=== PATIENT | female | born 1930 | race Caucasian/White ===

== ENCOUNTER 2018-07-28 22:13 | Inpatient (IN) ==
--- NOTE | 2018-07-29 00:18 | Internal Med History&Physical ---
<Jeovany Betancourt S - Last Filed: 07/29/18 01:11> Date of Encounter: 07/29/18 Time of Encounter: 01:11 Internal Medicine - H&P: HPI Chief complaint: i fell Admitted From: Hospital to Hospital Transfer Plans for Post Hospital Care: Home History of present illness: Ms. Bazzi is a 87 year old female with PMH of polio, CAD s/p LHC and stent, HTN, rheumatoid arthritis, and HLD presents to [facility] as a [facility] transfer. She states she was trying to feed her cats and felt very lightheaded and then passed out and hit her head after falling forward. She does have a hx of falls and states she has had many falls over the last few years. She denies any active chest pain but does state that occasionally she will feel a "twinge of chest pain." She has never been diagnosed with a fib before. She was able to drag h erself to a phone and call for help. She states she is not on anticoagulation, she did not have any LOC, she was down very minimal amount of time. In the past she has had a holter monitor, which showed 16 beats of SVT. Previous ECHO in 2017 had a LVEF of 50%. She reported a history of LHC and 1 stent. The pt was stabilized at [facility] and started on cardizem. She was noted to have a large hematoma of the forehead. CT scan ruled out intracranial bleed. C- spine CT was negative for fracture. EKG showed old Q waves and unchanged ST elevation. She is currently resting comfortably without any complaint. She denies active chest pain, SOB, palpiltations or N/V/D. Past Med Surg Social Fam HX - Past Medical History Medical history: hypertension Psychiatric history: no psych history - Past Surgical History Additional surgical history: Bowel Rescetion, - Social History Smoking Status: Never smoker Alcohol use: none Drug use: none Internal Medicine - H&P: Meds Aspirin [Adult Aspirin] 81 mg PO DAILY 07/28/18 [History] Atorvastatin Calcium [Lipitor] 10 mg PO 07/28/18 [History] Calcium Carbonate [Calcium] 1,500 mg PO 07/28/18 [History] Cholecalciferol (Vitamin D3) [Vitamin D] 1,000 unit PO DAILY 07/28/18 [History] Labetalol HCl 100 mg PO DAILY 07/28/18 [History] Potassium 07/28/18 [History] Allergy/AdvReac Type Severity Reaction Status Date / Time Antihistamines - Alkylamine Allergy Swelling Verified 07/28/18 19:17 of Lip/Tongue/Throat Iodinated Contrast- Oral and Allergy Swelling Verified 07/28/18 19:15 IV Dye of Lip/Tongue/Throat Latex, Natural Rubber Allergy Swelling Verified 07/28/18 19:15 of Lip/Tongue/Throat All Systems PM: A 10-system review of systems was performed and is negative for pertinent findings except as documented above in the HPI. - Constitutional Constitutional: fatigue, falls, weakness, no fever(s) - EENT Eyes: no blurry vision, no change in vision Ears: no tinnitus Nose, mouth and throat: no epistaxis - Cardiovascular Cardiovascular ROS IM: lightheadedness, palpitations, no chest pain, no dyspnea, no dyspnea on exertion - Respiratory Respiratory: no cough, no dyspnea, no dyspnea on exertion - Gastrointestinal Gastrointestinal: no abdominal pain, no diarrhea, no nausea, no vomiting - Musculoskeletal Musculoskeletal ROS IM: arthralgias, neck pain, no stiffness, no tingling - Integumentary Integumentary IM: no rash, no jaundice - Psychiatric Psychiatric: no anxiety, no depression - Endocrine Endocrine IM: fatigue - Hematologic/Lymphatic Hematologic/Lymphatic: easy bruising, no easy bleeding - Constitutional General appearance: Present: cooperative, A&O X 3, underweight, answers questions appropriately Exam: General - AOx3, cooperative, pleasant HEENT - normocephalic, contusion of the forehead, MMM Eyes - no scleral icterus, no proptosis Cardio - tacycardic, irregular rhythm, CTA lungs - CTAB, no wheeze/rhonchi/rales, no respiratory distress abd - NTND, no peritoneal signs, no rebound or guarding extremities - moves all extremties equally, strength diminished neuro - no FND, CN2-12 intact, sensation intact skin - warm,dry, minor scratches to the hands, some bruising noted on the UE and forehead psych - appropriate mood/affect - Assessment and Plan (1) Atrial fibrillation with RVR Current Visit: Yes Status: Resolved Assessment and plan: Pt went into a fib with RVR, was stabilized at [facility] and transferred to [facility] - new onset, never has had hx of a fib - denies previous use of labetolol/cardizem CHADVASc of 4 - pt is not good candidate for AC, will hold off at this time - high risk for bleeds with hx of falls Previous ECHO from 2017 LVEF 50%. Normal LV chamber size, wall thickness and overall function. Atypical septal motion consistent with bundle branch block. Normal right ventricular structure and function. Mild mitral regurgitation, no evidence of pulmonary hypertension Holter monitor from 2017 Rare PVCs. Occasional PACs. Occasional SVT, longest 16 beats. Troponin negative x 1 EKG #1 showed Q waves, unchanged ST elevation, and irregular rhythm EKG #2 showed irregular rhythm with normal rate and continued presence of Q waves/ST changes, however, unchanged compared to old EKG\\ Plan: - trend troponin - monitor cbc/bmp Magnesium with morning labs, keep>2 Phosphorus with AM labs - TSH pending - ECHO pending - continue cardizem drip - no anticoagulation at this time due to high risk for bleeding/hematoma - MRI pending for AM - FEN: cardiac diet, nutrition consulted - dispo: will require inpatient treatment, on IV cardizem will need to be transitioned to PO medication, will be home-going and is refusing PTOT evaluation or SNF placement (2) Wrist pain Current Visit: Yes Status: Acute Assessment and plan: Pt tried to brace and hurt wrist with fall. Will check an XR. Qualifiers: Laterality: left Qualified Code(s): M25.532 - Pain in left wrist (3) History of MT (myocardial infarction) Current Visit: No Status: Chronic Assessment and plan: Pt has hx of MT, s/p LHC 1 stent (4) History of poliomyelitis Current Visit: No Status: Chronic Assessment and plan: Pt had polio as child, has diminished strength at baseline in bilateral LE. (5) Hypertension Current Visit: No Status: Chronic Assessment and plan: Has hx of HTN, continue home rx. Qualifiers: Hypertension type: essential hypertension Qualified Code(s): I10 - Essential (primary) hypertension (6) Fall Current Visit: No Status: Acute Assessment and plan: Pt fell at home and hit face/wrist - large hematoma is present on right forehead - no LOC, not on AC, minimal downtime Head CT: no acute intracranial abnormality, rather prominent left forehead scalp contusion and hematoma. Maxillofacial CT: no acute traumatic injury of the facial bones, left supraorbital contusion Cervical spine CT: No acute abnormality of the cervical spine Plan: - fall precautions - pt is declining PTOT evaluation Qualifiers: Encounter type: initial encounter Qualified Code(s): W19.XXXA - Unspecified fall, initial encounter (7) Contusion of forehead Current Visit: Yes Status: Acute Assessment and plan: Secondary to fall. Pt denies LOC, blurry vision/visual changes, numbness/tingling over the affected area. Qualifiers: Encounter type: initial encounter Qualified Code(s): S00.83XA - Contusion of other part of head, initial encounter (8) DVT prophylaxis Current Visit: Yes Status: Acute Assessment and plan: scd (9) Protein calorie malnutrition Current Visit: Yes Status: Acute Assessment and plan: BMI 18.3, will consult nutrition Qualifiers: Protein-calorie malnutrition severity: mild Qualified Code(s): E44.1 - Mild protein-calorie malnutrition - Time Spent With Patient Total time spent is greater than 50% in coordination of care (as documented) at patient's floor/unit and/or counseling patient: 25 - 35 minutes <Cruz Saunders - Last Filed: 07/29/18 02:09> Date of Encounter: 07/29/18 Internal Medicine - H&P: HPI History of present illness: Ms. Bazzi is a 87 year old female All Systems PM: A 10-system review of systems was performed and is negative for pertinent findings except as documented above in the HPI. - Constitutional Vitals: Temp Pulse Resp BP Pulse Ox 97.8 F 100 16 120/89 97 07/29/18 00:01 07/29/18 00:01 07/29/18 00:01 07/29/18 00:01 07/29/18 00:01 Internal Med - H&P Results - Labs Labs: Cardiac Enzymes 07/29/18 Range/Units 01:02 Troponin I 0.04 H* (< 0.04) ng/mL - Assessment and Plan (1) Contusion of forehead Current Visit: Yes Status: Acute Qualifiers: Encounter type: initial encounter Qualified Code(s): S00.83XA - Contusion of other part of head, initial encounter (2) Atrial fibrillation with RVR Current Visit: Yes Status: Resolved (3) Fall Current Visit: No Status: Acute Qualifiers: Encounter type: initial encounter Qualified Code(s): W19.XXXA - Unspecified fall, initial encounter (4) DVT prophylaxis Current Visit: Yes Status: Acute (5) Wrist pain Current Visit: Yes Status: Acute Qualifiers: Laterality: left Qualified Code(s): M25.532 - Pain in left wrist (6) History of MT (myocardial infarction) Current Visit: No Status: Chronic (7) History of poliomyelitis Current Visit: No Status: Chronic (8) Hypertension Current Visit: No Status: Chronic Qualifiers: Hypertension type: essential hypertension Qualified Code(s): I10 - Essential (primary) hypertension (9) Protein calorie malnutrition Current Visit: Yes Status: Acute Qualifiers: Protein-calorie malnutrition severity: mild Qualified Code(s): E44.1 - Mild protein-calorie malnutrition - Time Spent With Patient Total time spent is greater than 50% in coordination of care (as documented) at patient's floor/unit and/or counseling patient: - Attending Attestation I have seen and examined the patient with Dr. Betancourt and agree with his/her assessment and plan. 87-year-old female with history of hypertension, CAD status post remote PCI, presented to the outside hospital ED with intermittent episodes of dizziness/vertigo resulting in fall today. Suffered left periorbital hematoma. She was also noted to have new onset of A. fib with RVR and was transferred to [facility] for further management. Vitals reviewed. On exam, ecchymosis over left forehead noted. Her heart rate is now controlled on diltiazem drip, no murmur auscultated. No JVD or leg edema. Workup from the outside hospital reviewed; normal CBC, BMP, and troponin. Repeat EKG showed afib with controlled ventricular rate. Will check TSH, monitor electrolytes, and trend troponin to rule out ACS. Check echocardiogram. CHADVASC score of 4 due to her age, sex, and HTN; currently declines AC despite understanding the risk of embolic event without it. Given intermittent episodes of dizziness/vertigo, will rule out CVA with MRI as well. Cruz Saunders MD
[2018-07-29] MEDS ORDERED: Naloxone 0.4 MG/ML INJ IVP PRN ×2 (00:24→01:08)
[2018-07-29 01:38] LABS: Troponin I 0.04 ng/mL (< 0.04)
[2018-07-29 01:58] LABS: Thyroid Stimulating Hormone 3.519 mcIU/mL (0.340-5.600)
[2018-07-29 07:18] LABS: Hematocrit 38.6 % (35.3-44.9); Hemoglobin 13.3 g/dL (11.5-15.4); Mean Corpuscular HGB Conc 34.5 g/dL (31.6-35.5); Mean Corpuscular Hemoglobin 30.9 pg (28.0-33.3); Mean Corpuscular Volume 89.6 fL (83.0-100.0); Mean Platelet Volume 10.5 fL (9.4-12.4); Platelet Count 205 K/mcL (140-400); Red Blood Count 4.31 M/mcL (3.82-4.97); Red Cell Distribution Width 12.3 % (11.5-14.5)
[2018-07-29 07:26] LABS: BUN/Creatinine Ratio 46 (6-26); Blood Urea Nitrogen 19 mg/dL (8-23); Calcium 9.4 mg/dL (8.6-10.3); Carbon Dioxide 26 mEq/L (23-29); Chloride 105 mEq/L (98-107); Glucose 123 mg/dL (70-105); Magnesium 1.7 mg/dL (1.6-2.6); Osmolality,Calculated 294 (280-300); Phosphorous 3.5 mg/dL (2.7-4.5); Potassium 3.9 mEq/L (3.5-5.1); Sodium 140 mEq/L (136-145); eGFR For Non-African Americans > 60 (> 60)
--- NOTE | 2018-07-29 10:20 | Internal Med Progress Note ---
Hospitalist Progress Note - Encounter Date of Encounter: 07/29/18 Time of Encounter: 10:18 - Subjective Interval History: No acute events. Patient still had a little fatigue earlier in the morning. Denies any further falls, denies CP, SOB, palpitations. - Exam Vitals: Temp Pulse Resp BP Pulse Ox 98.0 F 80 16 128/70 92 07/29/18 07:35 07/29/18 07:35 07/29/18 07:35 07/29/18 07:35 07/29/18 07:35 Exam: General - AOx3, cooperative, pleasant HEENT - normocephalic, contusion of the forehead, MMM Eyes - no scleral icterus, no proptosis Cardio - tacycardic, irregular rhythm, CTA lungs - CTAB, no wheeze/rhonchi/rales, no respiratory distress abd - NTND, no peritoneal signs, no rebound or guarding extremities - moves all extremties equally, strength diminished neuro - no FND, CN2-12 intact, sensation intact skin - warm,dry, minor scratches to the hands, some bruising noted on the UE and forehead psych - appropriate mood/affect - Assessment and Plan (1) Atrial fibrillation with RVR Current Visit: Yes Status: Resolved Assessment and Plan: Pt went into a fib with RVR, was stabilized at [facility] and transferred to [facility] CHADVASc of 4 Previous ECHO from 2017 LVEF 50%. Normal LV chamber size, wall thickness and overall function. Atypical septal motion consistent with bundle branch block. Normal right ventricular structure and function. Mild mitral regurgitation, no evidence of pulmonary hypertension Holter monitor from 2017 Rare PVCs. Occasional PACs. Occasional SVT, longest 16 beats. Troponin negative x 1 EKG #1 showed Q waves, unchanged ST elevation, and irregular rhythm EKG #2 showed irregular rhythm with normal rate and continued presence of Q waves/ST changes, however, unchanged compared to old EKG\ TSH within normal limits. No anticoagulation per patient and neice preference and given she is high fall risk and risks outweigh benefits. HR controlled on Cardizem drip Start PO Cardizem and titrate drip Echocardiogram pending. (2) Contusion of forehead Current Visit: Yes Status: Acute Assessment and Plan: Secondary to fall. Pt denies LOC, blurry vision/visual changes, numbness/tingling over the affected area. CT negative for ICH (3) Fall Current Visit: No Status: Acute Assessment and Plan: Pt fell at home and hit face/wrist - large hematoma is present on right forehead - no LOC, not on AC, minimal downtime Head CT: no acute intracranial abnormality, rather prominent left forehead scalp contusion and hematoma. Maxillofacial CT: no acute traumatic injury of the facial bones, left supra orbital contusion Cervical spine CT: No acute abnormality of the cervical spine MRI no acute findings. Plan: - fall precautions - pt is declining PTOT evaluation Likely from Afib with RVR Echo pending (4) DVT prophylaxis Current Visit: Yes Status: Acute Assessment and Plan: scd (5) Wrist pain Current Visit: Yes Status: Acute Assessment and Plan: Pt tried to brace and hurt wrist with fall. Will check an XR. (6) History of IN (myocardial infarction) Current Visit: No Status: Chronic Assessment and Plan: Pt has hx of IN, s/p LHC 1 stent (7) History of poliomyelitis Current Visit: No Status: Chronic Assessment and Plan: Pt had polio as child, has diminished strength at baseline in bilateral LE. (8) Hypertension Current Visit: No Status: Chronic Assessment and Plan: Has hx of HTN, Currently on Cardizem drip (9) Protein calorie malnutrition Current Visit: Yes Status: Acute Assessment and Plan: BMI 18.3, will consult nutrition - Time Spent with Patient Total time spent is greater than 50% in coordination of care (as documented) at patient's floor/unit and/or counseling patient: Internal Medicine: Result - Labs CBC & Chem 7: 07/29/18 06:53 07/29/18 06:53 Labs: Short CBC 07/29/18 Range/Units 06:53 WBC 9.9 (4.3-11.1) K/mcL Hgb 13.3 (11.5-15.4) g/dL Hct 38.6 (35.3-44.9) % Plt Count 205 (140-400) K/mcL BMP 07/29/18 06:53 Sodium 140 Potassium 3.9 Chloride 105 Carbon Dioxide 26 BUN 19 Creatinine 0.41 L Glucose 123 H Calcium 9.4 Cardiac Enzymes 07/29/18 07/29/18 Range/Units 01:02 06:53 Troponin I 0.04 H* 0.07 H* (< 0.04) ng/mL - Impressions Impressions Hand X-Ray 07/29/18 00:38 IMPRESSION: 1. The small density dorsal to the proximal carpal row may be degenerative or could represent a triquetrum fracture. 2. No other evidence for fracture. 3. Findings suggest erosive osteoarthritis. D/ / Mik Mcknight MD / Mik Mcknight MD Interpreting Provider: Mik Mcknight MD Brain MRI 07/29/18 01:09 IMPRESSION: No acute intracranial abnormality. Mild parenchymal volume loss. Mild to moderate chronic microvascular disease. D/ / Ludwig Conde MD / Ludwig Conde MD Interpreting Provider: Ludwig Conde MD Hand CT 07/29/18 07:00 IMPRESSION: 1. No acute fracture. 2. 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 Osteoarthritis in the DIP joints. D/ / 07/29/2018 09:06:41 Ryan Galvan MD / sean Interpreting Provider: Ryan Galvan MD Consult Discharge Plan - Plan Referrals: Lou Urbano [employer]OUNTS RECEIVABLE ANALYST [Primary Care Provider] - (2) Contusion of forehead Qualifiers: Encounter type: initial encounter Qualified Code(s): S00.83XA - Contusion of other part of head, initial encounter (3) Fall Qualifiers: Encounter type: initial encounter Qualified Code(s): W19.XXXA - Unspecified fall, initial encounter (5) Wrist pain Qualifiers: Laterality: left Qualified Code(s): M25.532 - Pain in left wrist (8) Hypertension Qualifiers: Hypertension type: essential hypertension Qualified Code(s): I10 - Essential (primary) hypertension (9) Protein calorie malnutrition Qualifiers: Protein-calorie malnutrition severity: mild Qualified Code(s): E44.1 - Mild protein-calorie malnutrition
[2018-07-29] MEDS ORDERED: diazePAM 10 MG/2 ML SYRINGE IVP ONE (23:10)
--- NOTE | 2018-07-30 09:45 | Electrocardiograph Report ---
[place] [id number] Test Date: 2018-07-29 Pat Name: Mary Bazzi Department: 111 Room: 2NE20 Gender: F Acid Remover: [id number] : 1930 Requested By: Cruz Saunders Order Number: [id number] Reading MD: Daron Raiv Measurements Intervals [place] Rate: 89 P: NE: 0 QRS: 228 QRSD: 134 T: 9 QT: 414 QTc: 461 Interpretive Statements ATRIAL FIBRILLATION INTRAVENTRICULAR CONDUCTION DELAY [130+ ms QRS DURATION] Electronically Signed On 07-30-2018 9:43:23 EDT by Daron Ravi
[2018-07-30] MEDS: Aspirin Enteric Coated 81 MG Tablet PO SCH (13:29)
--- NOTE | 2018-07-30 13:30 | Cardiology Consult Note ---
Date of Encounter: 07/30/18 Time of Encounter: 13:28 Assessment and Plan (1) Atrial fibrillation with RVR Current Visit: Yes Status: Resolved Presented with mild atrial fibrillation with RVR after falling at home. Unknown timing of onset. Now rate controlled on oral cardizem. TTE completed shows newly reduced EF at 35-40%. Mild to moderate mitral regu rgitation. Trivial pericardial effusion. EKG shows atrial fibrillation, LBBB that also appears to be new. With low EF patient would benefit from bb. Change cardizem to toprol xl 50 mg daily. Discussed local intermodal truck driver AC with patient and family. CHADS VASC= 5 (age4, gender, HTN, CAD). Patient presented after fall and reports multiple falls. Asa only recommended. If dizziness and falls resolve can consider Coumadin or NOAC in future. Increased risk of CVA discussed. Patient and family agree with plan. (2) LBBB (left bundle branch block) Current Visit: Yes Status: Acute EKG with LBBB. Compared to EKG in 2005 this appears to be new. EF also reduced from prior at 35-40%. Previously 50% in 2017. Mild troponin noted at 0.04, 0.07-not diagnostic of ACS in setting of fall and atrial fibrillation with RVR. Likely demand ischemia. Ischemic evaluation with [facility] verses medical management discussed. Due to advanced age family would prefer medical management at this time. (3) History of NV (myocardial infarction) Current Visit: No Status: Chronic History of NV and remote PCI. Recommend asa, moderate intensity statin, and bb. (4) Cardiomyopathy Current Visit: Yes Status: Acute New cardiomyopathy with F 35-40%. Appears to be euvolemic currently. Unknown eitiology, possible tachycardia verses ischemic. Start bb and low dose aceI. Consider aldactone if b/p will allow. Repeat echo in 3 months. Qualifiers: Cardiomyopathy type: unspecified Qualified Code(s): I42.9 - Cardiomyopathy, unspecified (5) Dizziness Current Visit: Yes Status: Acute Pt c/o dizziness with no syncope. S/p fall.Telemetry review without significant bradycardia. No pauses seen. No VT. Avg HR 76 bpm. Echo reviewed above. Check orthostatic vitals. Discussion w patient/family: The assessment and plan as outlined above was discussed with the patient and/or family members who expressed understanding and agreement. All questions were answered. Thank you for involving us in the care of your patient. Please call with any questions. History of Present Illness Consult date: 07/30/28 Requesting physician: Lyndsey Navarro Consult reason: new atrial fibrillation Chief complaint: intermittent dizziness and fall. History of present illness: Ms. Bazzi is a 87 year old female with past medical history of CAD s/p remote PCI, HTN, and HLD who presents from home after falling and hitting her head. Of note patient is confused at baseline. Niece at bedside helping give information. She c/o ongoing intermittent dizziness for past couple of months. Dizziness often occurs with position change. She states that she has to catch herself often so she does not fall. She feel one month ago and broke her glasses. Yeste rday she fell in her kitchen after standing and hit her head. her family made her go to the ED. She was found to have atrial fibrillation with mild RVR on admission. Cardiology consulted for new afib. Patient and family deny prior history. She admits to intermittent palpitations for a long time. Past Med Surg Social Fam HX - Past Medical History Source: patient, obtained from family Medical history: coronary artery disease, hyperlipidemia, hypertension Additional medical history: POLIO Psychiatric history: no psych history - Past Surgical History Additional surgical history: Bowel Rescetion, - Social History Smoking Status: Never smoker Smokeless Tobacco Status: No Alcohol use: none Drug use: none Medications and Allergies Aspirin [Adult Aspirin] 81 mg PO DAILY 07/28/18 [History] Calcium Carbonate [Calcium] 1,500 mg PO DAILY 07/28/18 [History] Cholecalciferol (Vitamin D3) [Vitamin D] 1,000 unit PO DAILY 07/28/18 [History] Labetalol HCl 100 mg PO DAILY 07/28/18 [History] Potassium 99 mg PO DAILY 07/28/18 [History] Atorvastatin [Lipitor] 5 mg PO HS 07/29/18 [History] Docusate [Colace] 100 mg PO HS 07/29/18 [History] Allergy/AdvReac Type Severity Reaction Status Date / Time Antihistamines - Alkylamine Allergy Swelling Verified 07/29/18 16:50 of Lip/Tongue/Throat Iodinated Contrast- Oral and Allergy Swelling Verified 07/29/18 16:50 IV Dye of Lip/Tongue/Throat Latex, Natural Rubber Allergy Swelling Verified 07/29/18 16:50 of Lip/Tongue/Throat All Systems Review: The remainder of the systems were reviewed and are negative Physical Examination General: Conversant, No Apparent Distress HEENT: Atraumatic, Normocephaly, Mucus Membranes Moist Neck: No JVD, Normal carotid pulses Cardiac: Other (Irregular, 3/6 systolic murmur.) Lungs: Normal Breath Sounds, No Wheeze, Rales, Rhonchi Neuro: Alert and responsive, No focal deficits noted Abdomen: Soft, Non-Tender Skin: No rashes noted on visualized skin Musculoskeletal: No Chest Wall Tenderness Extremities: No Clubbing, No Cyanosis, No Edema, Normal Pulses Results 07/29/18 06:53 07/29/18 06:53 - Imaging and Cardiology Echo: report reviewed - EKG Interpretation EKG results cardiology: personally reviewed Consult Discharge Plan - Plan Referrals: Lou Urbano L[employer] STRIPPER [Primary Care Provider] -
--- NOTE | 2018-07-30 15:44 | Internal Med Progress Note ---
Hospitalist Progress Note - Encounter Date of Encounter: 07/30/18 Time of Encounter: 15:41 - Subjective Interval History: Pt's niece at bedside during my evaluation. Pt unaware of history of Afib. She also denies being aware of prior history of Afib. She denies CP or SOB. She does have a large bruise around her left eye and cheek bone. She is anxious about being put in SNF or NH. She is in denial about her issues with dizziness and recurrent falls. CM and SW to discuss further with family. - Exam Vitals: Temp Pulse Resp BP Pulse Ox 96.5 F L 73 14 141/77 95 07/30/18 03:40 07/30/18 06:41 07/30/18 06:41 07/30/18 06:41 07/30/18 06:41 Exam: General - AOx3, cooperative, pleasant HEENT - normocephalic, contusion of the forehead, MMM Eyes - no scleral icterus, no proptosis Cardio - RRR S1S2, no murmmuir lungs - CTAB, no wheeze/rhonchi/rales, no respiratory distress abd - NTND, no peritoneal signs, no rebound or guarding extremities - moves all extremties equally, strength diminished neuro - no FND, CN2-12 intact, sensation intact skin - warm,dry, minor scratches to the hands, some bruising noted on the UE and forehead psych - appropriate mood/affect - Assessment and Plan (1) Contusion of forehead Current Visit: Yes Status: Acute Assessment and Plan: Secondary to fall. Pt denies LOC, blurry vision/visual changes, numbness/tingling over the affected area. CT negative for ICH. She does have a large bruise around her left eye and cheek bone. She is anxious about being put in SNF or NH. She is in denial about her issues with dizziness and recurrent falls. CM and SW to discuss further with family. (2) Atrial fibrillation with RVR Current Visit: Yes Status: Resolved Assessment and Plan: Pt went into a fib with RVR, was stabilized at [facility] and [facility] Troponin negative x 1 EKG #1 showed Q waves, unchanged ST elevation, and irregular rhythm EKG #2 showed irregular rhythm with normal rate and continued presence of Q waves/ST changes, however, unchanged compared to old EKG\ TSH within normal limits. No anticoagulation per patient and niece preference and given she is high fall risk, risks outweigh benefits. HR controlled on Cardizem drip and has been weaned off. Now on PO Metoprolol. Seen by cardiology and agree pt is too high risk for anticoagulation. Echocardiogram. EV/EV echocardiogram Impressions: LVEF 35-40%. Atypical septal motion consistent with bundle branch block. LV diastolic dysfunction with elevated filling pressures. Normal right ventricular structure and function. Mild-moderate mitral regurgitation. Mild tricuspid regurgitation. No pulmonary hypertension. There is a trivial pericardial effusion present. There is no echocardiographic evidence of tamponade. (3) Fall Current Visit: No Status: Acute Assessment and Plan: Pt fell at home and hit face/wrist - large hematoma is present on right forehead - no LOC, not on AC, minimal downtime Head CT: no acute intracranial abnormality, rather prominent left forehead scalp contusion and hematoma. Maxillofacial CT: no acute traumatic injury of the facial bones, left supraorbital contusion Cervical spine CT: No acute abnormality of the cervical spine MRI no acute findings. Plan: - fall precautions - pt is declining PT/OT evaluation Likely from Afib with RVR Echo results as above (4) Wrist pain Current Visit: Yes Status: Acute Assessment and Plan: Pt tried to brace and hurt wrist with fall. 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 (5) History of CO (myocardial infarction) Current Visit: No Status: Chronic Assessment and Plan: Pt has hx of CO, s/p LHC 1 stent (6) History of poliomyelitis Current Visit: No Status: Chronic Assessment and Plan: Pt had polio as child, has diminished strength at baseline in bilateral LE. (7) Hypertension Current Visit: No Status: Chronic Assessment and Plan: Has hx of HTN, Lisinopril and Metoprolol (8) Protein calorie malnutrition Current Visit: Yes Status: Acute Assessment and Plan: BMI 18.3, Nutrition consulting DVT Prophylaxis: SCD - Time Spent with Patient Total time spent is greater than 50% in coordination of care (as documented) at patient's floor/unit and/or counseling patient: less than 15 minutes Plan of Care Discussed with: patient Internal Medicine: Result - Labs CBC & Chem 7: 07/29/18 06:53 07/29/18 06:53 - Impressions Impressions Echocardiogram 07/29/18 00:24 Impressions: LVEF 35-40%. Atypical septal motion consistent with bundle branch block. LV diastolic dysfunction with elevated filling pressures. Normal right ventricular structure and function. Mild-moderate mitral regurgitation. Mild tricuspid regurgitation. No pulmonary hypertension. There is a trivial pericardial effusion present. There is no echocardiographic evidence of tamponade. Left Ventricular Wall Motion: Rest Echo Findings The apex, apical inferior, mid inferior, basal inferior, apical anterior, mid anterior, basal anterior, apical septal, mid inferior septal, basal inferior septal, apical lateral, mid anterior lateral, basal anterior lateral, mid anterior septal, mid inferior lateral, basal anterior septal and basal inferior lateral lr were hypokinetic. Findings: Study Quality * Technically adequate exam. ECG Findings * Normal sinus rhythm with ectopy. Left Ventricle * LVEF 35-40%. * Atypical septal motion consistent with bundle branch block. * LV diastolic dysfunction with elevated filling pressures. * LV chamber size and wall thickness measurements are normal. Right Ventricle * Normal right ventricular structure and function. Left Atrium * Moderately dilated left atrium. Right Atrium * Normal right atrial size. Aortic Valve * No aortic regurgitation. * Trileaflet aortic valve. * No aortic stenosis. Mitral Valve * Mildly thickened mitral valve leaflets. * No mitral stenosis. * Mild-moderate mitral regurgitation. Tricuspid Valve * Mild tricuspid regurgitation. * Normal tricuspid valve structure. * Estimated RA pressure is 3 mmHg. * Estimated RVSP is 23 mmHg. * No pulmonary hypertension. Pulmonic Valve * Pulmonic valve is not well visualized. * No pulmonic stenosis. * No pulmonic regurgitation. Pulmonary Artery * Pulmonary artery not well visualized. Aorta * Normally sized aortic root. Pericardium * There is a trivial pericardial effusion present. * There is no echocardiographic evidence of tamponade. Interatrial Septum * No evidence of PFO by color Doppler. IVC * Normal IVC dimensions and inspiratory collapse. Hand CT 07/29/18 07:00 IMPRESSION: 1. No acute fracture. 2. 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 Osteoarthritis in the DIP joints. D/ / 07/29/2018 09:06:41 Ryan Galvan MD / sean Interpreting Provider: Ryan Galvan MD Consult Discharge Plan - Plan Referrals: Lou Urbano, APARTMENT MAINTENANCE [Primary Care Provider] - (1) Contusion of forehead Qualifiers: Encounter type: initial encounter Qualified Code(s): S00.83XA - Contusion of other part of head, initial encounter (3) Fall Qualifiers: Encounter type: initial encounter Qualified Code(s): W19.XXXA - Unspecified fall, initial encounter (4) Wrist pain Qualifiers: Laterality: left Qualified Code(s): M25.532 - Pain in left wrist (7) Hypertension Qualifiers: Hypertension type: essential hypertension Qualified Code(s): I10 - Essential (primary) hypertension (8) Protein calorie malnutrition Qualifiers: Protein-calorie malnutrition severity: mild Qualified Code(s): E44.1 - Mild protein-calorie malnutrition
[2018-07-30] MEDS: Metoprolol XL (24 HR) Succ 50 MG TAB.ER.24H PO SCH (17:04)
[2018-07-30] MEDS: Acetaminophen 325 MG TABLET PO PRN (22:24)
[2018-07-31] MEDS: Aspirin Enteric Coated 81 MG Tablet PO SCH (09:39)
[2018-07-31] MEDS: Metoprolol XL (24 HR) Succ 50 MG TAB.ER.24H PO SCH (09:39)
[2018-07-31] MEDS: Acetaminophen 325 MG TABLET PO PRN (09:40)
--- NOTE | 2018-07-31 10:34 | Cardiology Progress Note ---
Date of Encounter: 07/31/18 Time of Encounter: 10:33 Assessment and Plan (1) Atrial fibrillation with RVR Current Visit: Yes Status: Resolved Presented with mild atrial fibrillation with RVR after falling at home. Unknown timing of onset. Now rate controlled on oral cardizem and changed to cardizem yesterday due to cardiomyopathy. . TTE completed shows newly reduced EF at 35-40%. Mild to moderate mitral regurgitation. Trivial pericardial effusion. EKG shows atrial fibrillation, LBBB that also appears to be new. Continue toprol xl 50 mg daily. Discussed halfway AC with patient and family. CHADS VASC= 5 (age4, gender, HTN, CAD). Patient presented after fall and reports multiple falls. Asa only recommended. If dizziness and falls resolve can consider Coumadin or NOAC in future. Increased risk of CVA discussed. Patient and family agree with plan. Telemetry review overnight shows atrial fibrillation. Around 1215 am there is loss of activity on telemetry and multiple pauses up to 18 seconds seen for several minutes and then total loss of transmission. Suspect this could be artifact but it is not clear. There is no witness or documentation of this event. With concern for fall and possible syncope recommend monitoring for another 24 hours to r/o pauses or tachybrady syndrome. (2) LBBB (left bundle branch block) Current Visit: Yes Status: Acute EKG with LBBB. Compared to EKG in 2005 this appears to be new. EF also reduced from prior at 35-40%. Previously 50% in 2017. Mild troponin noted at 0.04, 0.07-not diagnostic of ACS in setting of fall and atrial fibrillation with RVR. Likely demand ischemia. Ischemic evaluation with [facility] verses medical management discussed. Due to advanced age and frailty family would prefer medical management at this time. (3) History of VA (myocardial infarction) Current Visit: No Status: Chronic History of VA and remote PCI. Recommend asa, moderate intensity statin, and bb. (4) Cardiomyopathy Current Visit: Yes Status: Acute New cardiomyopathy with F 35-40%. Appears to be euvolemic currently. Unknown eitiology, possible tachycardia verses ischemic. Continue bb and low dose aceI. Consider aldactone if b/p will allow. Repeat echo in 3 months. Qualifiers: Cardiomyopathy type: unspecified Qualified Code(s): I42.9 - Cardiomyopathy, unspecified (5) Dizziness Current Visit: Yes Status: Acute Pt c/o dizziness with no syncope although poor historian and fall unwitnessed. S/p fall x3.Telemetry review without significant bradycardia. No VT. Avg HR 76 bpm. Questionable artifact verses pauses at 12:15 AM Last night. Continue to monitor telemetry. Echo reviewed above. Check orthostatic vitals. Discussion w patient/family: The assessment and plan as outlined above was discussed with the patient and/or family members who expressed understanding and agreement. All questions were answered. Thank you for involving us in the care of your patient. Please call with any questions. Subjective Principal diagnosis: Atrial fibrillation, new CMP, LBBB, dizziness Interval history: Patient seen and examined. Currently confused and difficult to assess symptoms. Objective Vital Signs, Last 4 Hours Pulse BP Pulse Ox 07/31/18 08:33 78 127/68 93 General: Conversant, No Apparent Distress, Other (Confused) HEENT: Atraumatic, Normocephaly, Mucus Membranes Moist Neck: No JVD, Normal carotid pulses Cardiac: Other (Irregular. 3/6 systolic heart murmur) Lungs: Normal Breath Sounds, No Wheeze, Rales, Rhonchi Neuro: Alert and responsive, No focal deficits noted Abdomen: Soft, Non-Tender Skin: No rashes noted on visualized skin Musculoskeletal: No Chest Wall Tenderness Extremities: No Clubbing, No Cyanosis, No Edema, Normal Pulses Results 07/29/18 06:53 07/29/18 06:53 - Imaging and Cardiology Echo: report reviewed - EKG Interpretation EKG results cardiology: personally reviewed Consult Discharge Plan - Plan Referrals: Lou Urbano CNP [Primary Care Provider] -
--- NOTE | 2018-07-31 13:13 | Internal Med Progress Note ---
Hospitalist Progress Note - Encounter Date of Encounter: 07/31/18 Time of Encounter: 12:59 - Subjective Interval History: Patient seen and examined this morning at bedside. No acute overnight events. Denies new complaints. Denies any chest pain or shortness of breath. - Exam Vitals: Temp Pulse Resp BP Pulse Ox 98.0 F 93 13 146/81 93 07/31/18 11:16 07/31/18 11:50 07/31/18 11:30 07/31/18 11:50 07/31/18 11:30 Exam: General: In no acute distress. Respiratory exam: CTAB. no accessory muscle use, rales, rhonchi, wheezes Cardiovascular exam: RRR, +S1, +S2. no murmur, gallop, rubs. GI/Abdominal exam: Non-tender, Non-distended, normal bowel sounds, soft, no peritoneal signs. Extremities exam: no pedal edema, no calf tenderness. Slight effusion on Rt knee. Neurological exam: CN II-XII intact, AO X3, LE 4/5 b/l with some wasting. Skin exam: Bruise noted on the for had - Assessment and Plan (1) Contusion of forehead Current Visit: Yes Status: Acute (2) Atrial fibrillation with RVR Current Visit: Yes Status: Resolved (3) Fall Current Visit: No Status: Acute (4) Wrist pain Current Visit: Yes Status: Acute (5) History of [place] (myocardial infarction) Current Visit: No Status: Chronic (6) History of poliomyelitis Current Visit: No Status: Chronic (7) Hypertension Current Visit: No Status: Chronic (8) Protein calorie malnutrition Current Visit: Yes Status: Acute - Summary of Assessment and Plan Summary of Assessment and Plan: Assessment Fall A. fib with RVR New Left bundle-branch block New Cardiomyopathy Wrist osteoarthritis History of CAD History of poliomyelitis Hypertension Protein calorie 1 nutrition Plan - Continue Toprol daily for rate control given cardiomyopathy. ASA per cardiology. If dizziness and falls results to consider Coumadin/NOAC in the fu ture. To continue telemetry monitoring for 24 hours to evaluate for tachybradycardia syndrome or pauses given telemetric events noted including pause which could be artifact. TSH WNL - Given new LBBB LHC versus medical management discussed by cardiology, however due to advanced age and fragility medical management at this time. Echocardiogram with EF of 35-40% which is decreased compared to previous. Repeat echo in 3 months. Could be ischemic versus tachycardia induced. - Patient came in with falls. Head CT/Maxillofacial CT/ cervical CT Brain MRI without acute abnormality. Orthostatics unremarkable. c/w fall precuation. agrees to get PT/OT. However patient may refuse recommendations. - Wrist pain from osteoarthritis likely excerbated after fall - On lisinopril and metoprolol given cardiomyopathy and afib. Will consider aldactone if BP stable - PT/OT far fall risk - SCD for DVT prophylaxis - Time Spent with Patient Total time spent is greater than 50% in coordination of care (as documented) at patient's floor/unit and/or counseling patient: Internal Medicine: Result - Labs CBC & Chem 7: 07/29/18 06:53 07/29/18 06:53 Consult Discharge Plan - Plan Referrals: Lou Urbano CNP [Primary Care Provider] - (1) Contusion of forehead Qualifiers: Encounter type: initial encounter Qualified Code(s): S00.83XA - Contusion of other part of head, initial encounter (3) Fall Qualifiers: Encounter type: initial encounter Qualified Code(s): W19.XXXA - Unspecified fall, initial encounter (4) Wrist pain Qualifiers: Laterality: left Qualified Code(s): M25.532 - Pain in left wrist (7) Hypertension Qualifiers: Hypertension type: essential hypertension Qualified Code(s): I10 - Essential (primary) hypertension (8) Protein calorie malnutrition Qualifiers: Protein-calorie malnutrition severity: mild Qualified Code(s): E44.1 - Mild protein-calorie malnutrition
--- NOTE | 2018-07-31 13:19 | Internal Med Progress Note ---
Hospitalist Progress Note - Encounter Date of Encounter: 07/31/18 Time of Encounter: 13:19 - Exam Vitals: Temp Pulse Resp BP Pulse Ox 98.0 F 93 13 146/81 93 07/31/18 11:16 07/31/18 11:50 07/31/18 11:30 07/31/18 11:50 07/31/18 11:30 - Assessment and Plan (1) Contusion of forehead Current Visit: Yes Status: Acute (2) Atrial fibrillation with RVR Current Visit: Yes Status: Resolved (3) Fall Current Visit: No Status: Acute (4) Wrist pain Current Visit: Yes Status: Acute (5) History of [place] (myocardial infarction) Current Visit: No Status: Chronic (6) History of poliomyelitis Current Visit: No Status: Chronic (7) Hypertension Current Visit: No Status: Chronic (8) Protein calorie malnutrition Current Visit: Yes Status: Acute - Time Spent with Patient Total time spent is greater than 50% in coordination of care (as documented) at patient's floor/unit and/or counseling patient: Internal Medicine: Result - Labs CBC & Chem 7: 07/29/18 06:53 07/29/18 06:53 Consult Discharge Plan - Plan Referrals: Lou Urbano SPECIAL DELIVERY MESSENGER [Primary Care Provider] - (1) Contusion of forehead Qualifiers: Encounter type: initial encounter Qualified Code(s): S00.83XA - Contusion of other part of head, initial encounter (3) Fall Qualifiers: Encounter type: initial encounter Qualified Code(s): W19.XXXA - Unspecified fall, initial encounter (4) Wrist pain Qualifiers: Laterality: left Qualified Code(s): M25.532 - Pain in left wrist (7) Hypertension Qualifiers: Hypertension type: essential hypertension Qualified Code(s): I10 - Essential (primary) hypertension (8) Protein calorie malnutrition Qualifiers: Protein-calorie malnutrition severity: mild Qualified Code(s): E44.1 - Mild protein-calorie malnutrition
[2018-07-31] MEDS ORDERED: diazePAM 10 MG/2 ML SYRINGE IVP ONE (20:35)
[2018-08-01] MEDS: Acetaminophen 325 MG TABLET PO PRN (06:27)
--- NOTE | 2018-08-01 06:59 | Event Note ---
Date of Encounter: 08/01/18 Time of Encounter: 06:57 - Cardiology Event Note 24 hour telemetry review reveals rate controlled atrail fibrillation. No Tachy- anisa syndrome seen. No pauses. No VT. Suspect pause seen last 24 hours was artifact. Orthostatic vitals negative. Continue toprol XL and asa. Out-pt f/u will be coordinated with [facility].
[2018-08-01] MEDS: Metoprolol XL (24 HR) Succ 50 MG TAB.ER.24H PO SCH (09:30)
[2018-08-01] MEDS: Aspirin Enteric Coated 81 MG Tablet PO SCH (09:31)
--- NOTE | 2018-08-01 15:00 | Internal Med Progress Note ---
Hospitalist Progress Note - Encounter Date of Encounter: 08/01/18 Time of Encounter: 12:58 - Subjective Interval History: Patient seen and examined this morning at bedside. No acute overnight events. Patient denies new symptoms. Patient alert and oriented 2 currently however according to the nurse in the morning patient very confused and did not know her date of . Patient insists when she is alert said she is fine to go home. Denies any chest pain, shortness of breath or difficulty breathing. Has some soreness in her joints which she feels happened after the fall. Currently denies any dizziness. - Exam Vitals: Temp Pulse Resp BP Pulse Ox 97.9 F 80 14 133/89 93 08/01/18 11:51 08/01/18 11:51 08/01/18 04:03 08/01/18 11:51 08/01/18 11:51 Exam: General: In no acute distress. thin build Respiratory exam: CTAB. no accessory muscle use, rales, rhonchi, wheezes Cardiovascular exam: RRR, +S1, +S2. no murmur, gallop, rubs. GI/Abdominal exam: Non-tender, Non-distended, normal bowel sounds, soft, no peritoneal signs. Extremities exam: no pedal edema, no calf tenderness. Slight effusion on Rt knee. Neurological exam: CN II-XII intact, AO X2, LE 4/5 b/l with some wasting. Skin exam: Bruise noted on the forehad - Assessment and Plan (1) Contusion of forehead Current Visit: Yes Status: Acute (2) Atrial fibrillation with RVR Current Visit: Yes Status: Resolved (3) Fall Current Visit: No Status: Acute (4) Wrist pain Current Visit: Yes Status: Acute (5) History of ND (myocardial infarction) Current Visit: No Status: Chronic (6) History of poliomyelitis Current Visit: No Status: Chronic (7) Hypertension Current Visit: No Status: Chronic (8) Protein calorie malnutrition Current Visit: Yes Status: Acute - Summary of Assessment and Plan Summary of Assessment and Plan: Assessment Fall A. fib with RVR New Left bundle-branch block New Cardiomyopathy Wrist osteoarthritis History of CAD History of poliomyelitis Hypertension Protein calorie malnutrition Plan - afib rate controlled with Toprol given cardiomyopathy. ASA per cardiology. If dizziness and falls results to consider Coumadin/NOAC in the future. No events noted on tele. Cardiology ok to dc for outpatient fu. - Given new LBBB LHC versus medical management was discussed by cardiology, how ever due to advanced age and fragility onlymedical management at this time. Echocardiogram with EF of 35-40% which is decreased compared to previous. Repeat echo in 3 months. Could be ischemic versus tachycardia induced. - Patient came in with falls. Head CT/Maxillofacial CT/ cervical CT Brain MRI without acute abnormality. Orthostatics unremarkable. c/w fall precaution. PT/OT recommends SNF. Patient not safe to go home along and has on/off . Not able to make appropriate decision. Niece(POA) also mentions about getting calls from her where she appeared confused and did not know she was in hospital. Patient is unsafe to go home. will need placement. Will need to stay till friday for placement. - On lisinopril and metoprolol given cardiomyopathy and afib. Will consider adding aldactone if BP above 150 sbp consistantly - SCD for DVT prophylaxis - Time Spent with Patient Total time spent is greater than 50% in coordination of care (as documented) at patient's floor/unit and/or counseling patient: Internal Medicine: Result - Labs CBC & Chem 7: 07/29/18 06:53 07/29/18 06:53 Consult Discharge Plan - Plan Referrals: Lou Urbano ANALYSIS OR RESEARCH SAFETY INSPECTOR [Primary Care Provider] - ____ (1) Contusion of forehead Qualifiers: Encounter type: initial encounter Qualified Code(s): S00.83XA - Contusion of other part of head, initial encounter (3) Fall Qualifiers: Encounter type: initial encounter Qualified Code(s): W19.XXXA - Unspecified fall, initial encounter (4) Wrist pain Qualifiers: Laterality: left Qualified Code(s): M25.532 - Pain in left wrist (7) Hypertension Qualifiers: Hypertension type: essential hypertension Qualified Code(s): I10 - Essential (primary) hypertension (8) Protein calorie malnutrition Qualifiers: Protein-calorie malnutrition severity: mild Qualified Code(s): E44.1 - Mild protein-calorie malnutrition
[2018-08-02] MEDS: Metoprolol XL (24 HR) Succ 50 MG TAB.ER.24H PO SCH (10:04)
[2018-08-02] MEDS: Aspirin Enteric Coated 81 MG Tablet PO SCH (10:04)
--- NOTE | 2018-08-02 11:09 | Internal Med Progress Note ---
Hospitalist Progress Note - Encounter Date of Encounter: 08/02/18 Time of Encounter: 11:09 - Subjective Interval History: Patient seen and examined this morning in respiratory. No acute overnight events. Denies new complaints. Still On and off confused. Occasionally per nursing does not know her birthday and has to get prompted. Denies any new comp laints. - Exam Vitals: Temp Pulse Resp BP Pulse Ox 98 F 87 17 155/93 97 08/02/18 07:21 08/02/18 07:21 08/02/18 07:21 08/02/18 07:21 08/02/18 07:21 Exam: General: In no acute distress. thin build Respiratory exam: CTAB. Cardiovascular exam: RRR, +S1, +S2. GI/Abdominal exam: Non-tender, Non-distended, no peritoneal signs. Extremities exam: no pedal edema, no calf tenderness. Slight effusion on Rt knee. Neurological exam: CN II-XII intact, AO X1, LE 4/5 b/l with some wasting. Skin exam: Bruise noted on the kong - Assessment and Plan (1) Contusion of forehead Current Visit: Yes Status: Acute (2) Atrial fibrillation with RVR Current Visit: Yes Status: Resolved (3) Fall Current Visit: No Status: Acute (4) Wrist pain Current Visit: Yes Status: Acute (5) History of ME (myocardial infarction) Current Visit: No Status: Chronic (6) History of poliomyelitis Current Visit: No Status: Chronic (7) Hypertension Current Visit: No Status: Chronic (8) Protein calorie malnutrition Current Visit: Yes Status: Acute - Summary of Assessment and Plan Summary of Assessment and Plan: Assessment Fall A. fib with RVR New Left bundle-branch block New Cardiomyopathy Wrist osteoarthritis History of CAD History of poliomyelitis Hypertension Protein calorie malnutrition Confusion likely from dementia and hospitalization Plan - afib rate controlled with Toprol given cardiomyopathy. ASA per cardiology. Cardiology ok to dc for outpatient fu. - Given new LBBB LHC versus medical management was discussed by cardiology, however due to advanced age and fragility only medical management at this time. Echocardiogram with EF of 35-40% which is decreased compared to previous. Repeat echo in 3 months. Could be ischemic versus tachycardia induced. c/w toprol and lisinopril - Patient came in with falls. Head CT/Maxillofacial CT/ cervical CT Brain MRI without acute abnormality. Orthostatics unremarkable. c/w fall precaution. PT/OT recommends SNF. Patient not safe to go home along and has on/off sundowning. Not able to make appropriate decision. Discussed with Niece(POA) . Patient is unsafe to go home. Will need placement. - To have SW arranged for SNF tomorrow. Medically stable to be discharged. - Will consider adding aldactone if BP above 150 sbp consistantly - SCD for DVT prophylaxis - Time Spent with Patient Total time spent is greater than 50% in coordination of care (as documented) at patient's floor/unit and/or counseling patient: Internal Medicine: Result - Labs CBC & Chem 7: 07/29/18 06:53 07/29/18 06:53 Consult Discharge Plan - Plan Referrals: Lou Urbano CNP [Primary Care Provider] - (1) Contusion of forehead Qualifiers: Encounter type: initial encounter Qualified Code(s): S00.83XA - Contusion of other part of head, initial encounter (3) Fall Qualifiers: Encounter type: initial encounter Qualified Code(s): W19.XXXA - Unspecified fall, initial encounter (4) Wrist pain Qualifiers: Laterality: left Qualified Code(s): M25.532 - Pain in left wrist (7) Hypertension Qualifiers: Hypertension type: essential hypertension Qualified Code(s): I10 - Essential (primary) hypertension (8) Protein calorie malnutrition Qualifiers: Protein-calorie malnutrition severity: mild Qualified Code(s): E44.1 - Mild protein-calorie malnutrition
[2018-08-03 08:17] VITALS: BP 163/89
[2018-08-03] MEDS: Aspirin Enteric Coated 81 MG Tablet PO SCH (10:07)
[2018-08-03] MEDS: Metoprolol XL (24 HR) Succ 50 MG TAB.ER.24H PO SCH (10:07)
--- NOTE | 2018-08-03 18:27 | Discharge Summary ---
- NOTES TO OUTPATIENT PROVIDER Notes to Outpatient Provider: PCP in 5 to 7 days Date of Encounter: 08/03/18 Time of Encounter: 18:21 - Discharge Diagnosis (1) Atrial fibrillation with RVR Priority: Primary Status: Resolved Assessment and Plan: Pt went into a fib with RVR, was stabilized at [facility] and [facility] Troponin negative x 1 EKG #1 showed Q waves, unchanged ST elevation, and irregular rhythm EKG #2 showed irregular rhythm with normal rate and continued presence of Q waves/ST changes, however, unchanged compared to old EKG\\ TSH within normal limits. No anticoagulation per patient and niece preference and given she is high fall risk, risks outweigh benefits. HR controlled on Cardizem drip and has been weaned off. Now on PO Metoprolol. Seen by cardiology and agree pt is too high risk for anticoagulation. Echocardiogram. EV/EV echocardiogram Impressions: LVEF 35-40%. Atypical septal motion consistent with bundle branch block. LV diastolic dysfunction with elevated filling pressures. Normal right ventricular structure and function. Mild-moderate mitral regurgitation. Mild tricuspid regurgitation. No pulmonary hypertension. There is a trivial pericardial effusion present. There is no echocardiographic evidence of tamponade. (2) Wrist pain Priority: Secondary Status: Acute Assessment and Plan: Pt tried to brace and hurt wrist with fall. 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 Recommend PRN pain control Qualifiers: Laterality: left Qualified Code(s): M25.532 - Pain in left wrist (3) History of ND (myocardial infarction) Priority: Secondary Status: Chronic Assessment and Plan: Pt has hx of ND, s/p C 1 stent (4) History of poliomyelitis Priority: Secondary Status: Chronic Assessment and Plan: Pt had polio as child, has diminished strength at baseline in bilateral LE. (5) Hypertension Priority: Secondary Status: Chronic Assessment and Plan: Has hx of HTN, Lisinopril and Metoprolol Qualifiers: Hypertension type: essential hypertension Qualified Code(s): I10 - Essential (primary) hypertension (6) Protein calorie malnutrition Priority: Secondary Status: Acute Assessment and Plan: BMI 18.3, Nutrition saw pt in consult Qualifiers: Protein-calorie malnutrition severity: mild Qualified Code(s): E44.1 - Mild protein-calorie malnutrition (7) Fall Priority: Secondary Status: Acute Assessment and Plan: Pt fell at home and hit face/wrist - large hematoma is present on right forehead - no LOC, not on AC, minimal downtime Head CT: no acute intracranial abnormality, rather prominent left forehead scalp contusion and hematoma. Maxillofacial CT: no acute traumatic injury of the facial bones, left supraorbital contusion Cervical spine CT: No acute abnormality of the cervical spine MRI no acute findings. Plan: - fall precautions - pt was declining PT/OT evaluation but was eventually seen and PT/OT recomme nding SNF Likely from Afib with RVR Echo results as above Qualifiers: Encounter type: initial encounter Qualified Code(s): W19.XXXA - Unspecified fall, initial encounter Hospital course: History of present illness: Dr. Saunders/Jeovany Betancourt Ms. Bazzi is a 87 year old female with PMH of polio, CAD s/p LHC and stent, HTN, rheumatoid arthritis, and HLD presents to [facility] as a jessy transfer. She states she was trying to feed her cats and felt very lightheaded and then passed out and hit her head after falling forward. She does have a hx of falls and states she has had many falls over the last few years. She denies any active chest pain but does state that occasionally she will feel a "twinge of chest pain." She has never been diagnosed with a fib before. She was able to drag herself to a phone and call for help. She states she is not on anticoagulation, she did not have any LOC, she was down very minimal amount of time. Discharge discussed with: patient - Time Spent with Patient Total time spent providing and/or coordinating discharge services: Time spent: Greater than 30 minutes - Discharge Medications Prescriptions: New Metoprolol XL (24 HR) Succ [Toprol Xl] 50 mg PO DAILY 30 Days #30 tab.er.24h Lisinopril [Zestril] 2.5 mg PO DAILY 30 Days #30 tablet Continued Atorvastatin [Lipitor] 5 mg PO HS Docusate [Colace] 100 mg PO HS Cholecalciferol (Vitamin D3) [Vitamin D3] 1,000 unit PO DAILY Aspirin [Adult Aspirin] 81 mg PO DAILY Calcium Carbonate [Calcium] 1,500 mg PO DAILY Discontinued Labetalol HCl 100 mg PO DAILY Potassium 99 mg PO DAILY Home Medications: Aspirin [Adult Aspirin] 81 mg PO DAILY 07/28/18 [History] Calcium Carbonate [Calcium] 1,500 mg PO DAILY 07/28/18 [History] Cholecalciferol (Vitamin D3) [Vitamin D3] 1,000 unit PO DAILY 07/28/18 [History] Atorvastatin [Lipitor] 5 mg PO HS 07/29/18 [History] Docusate [Colace] 100 mg PO HS 07/29/18 [History] Lisinopril [Zestril] 2.5 mg PO DAILY 30 Days #30 tablet 08/02/18 [Rx] Metoprolol XL (24 HR) Succ [Toprol Xl] 50 mg PO DAILY 30 Days #30 tab.er.24h 08/02/18 [Rx] Allergies/Adverse Reactions: Allergy/AdvReac Type Severity Reaction Status Date / Time Antihistamines - Alkylamine Allergy Swelling Verified 07/29/18 16:50 of Lip/Tongue/Throat Iodinated Contrast- Oral and Allergy Swelling Verified 07/29/18 16:50 IV Dye of Lip/Tongue/Throat Latex, Natural Rubber Allergy Swelling Verified 07/29/18 16:50 of Lip/Tongue/Throat Date of admission: 07/31/18 16:57 Primary care physician: Lou Urbano CNP Consults: 07/29/18 01:13 Consult to Nutrition [CONS] Routine Comment: Consulting Provider: NUTRITION Reason for Dietary Consult: PO Supplementation 07/30/18 12:29 Consult to Cardiology [CONS] Routine Comment: Consulting Provider: Cardiology Johnna Reason for Consult: Afib RVR Call Completed: Yes 07/31/18 13:12 Consult to Occupational Therapy [CONS] Routine Comment: Evaluate, develop and implement POC Reason for Consult: fall, discharge planning Does patient have active BEDREST order?: No Is patient medically & hemodynamically stable?: Yes Consult to Physical Therapy [CONS] Routine Comment: Evaluate, develop and implement POC Reason for Consult: fall, discharge planning Does patient have active BEDREST order?: No Is patient medically & hemodynamically stable?: Yes 08/01/18 15:06 Consult to Marine Engineer [CONS] Routine Reason for SW Consult: Will need placement Discharging clinician: Lyndsey Navarro Anticipated date of discharge: 08/03/18 - Constitutional Vitals: Temp Pulse Resp BP Pulse Ox 97.4 F L 96 95 163/89 95 08/03/18 09:00 08/03/18 09:00 08/03/18 09:00 08/03/18 09:00 08/02/18 20:08 General appearance: Present: cooperative, A&O X 3, underweight, answers questions appropriately Exam: General - AOx3, cooperative, pleasant HEENT - normocephalic, contusion of the forehead, MMM Eyes - no scleral icterus, no proptosis Cardio - RRR S1S2, no murmmuir lungs - CTAB, no wheeze/rhonchi/rales, no respiratory distress abd - NTND, no peritoneal signs, no rebound or guarding extremities - moves all extremties equally, strength diminished neuro - no FND, CN2-12 intact, sensation intact skin - warm,dry, minor scratches to the hands, some bruising noted on the UE and forehead psych - appropriate mood/affect - Patient Status Disposition: Transfer SNF Condition: Fair Overall status at discharge: patient is progressing back to baseline - Discharge Instructions Follow Up With: Lou Urbano SONOGRAM TECHNICIAN [Primary Care Provider] - - Diet and Activity Activity: as per physical therapy Diet: low fat, low cholesterol, low salt diet
--- NOTE | 2018-08-03 18:38 | Physician Discharge Referral ---
Home Health/Hosp Referral Info Transfer to: Home Health Provider in Charge Post Discharge: PCP - Diagnosis (1) Atrial fibrillation with RVR Status: Resolved (2) Wrist pain Status: Acute (3) History of GA (myocardial infarction) Status: Chronic (4) History of poliomyelitis Status: Chronic (5) Hypertension Status: Chronic (6) Protein calorie malnutrition Status: Acute (7) Fall Status: Acute - Respiratory Orders Smoking Cessation: Smoking cessation has been advised. For more information, call the [place] Tobacco Quit Line at 7-221-YTUF-NOW. - Diet/Nutrition Diet/Nutrition Orders: Cardiac - Services Needed Following services are medically necessary services: Nursing, Physical Therapy, Occupational Therapy - Transfer Medications Prescriptions: Metoprolol XL (24 HR) Succ [Toprol Xl] 50 mg PO DAILY 30 Days #30 tab.er.24h Lisinopril [Zestril] 2.5 mg PO DAILY 30 Days #30 tablet Home Medications: Aspirin [Adult Aspirin] 81 mg PO DAILY 07/28/18 [History] Calcium Carbonate [Calcium] 1,500 mg PO DAILY 07/28/18 [History] Cholecalciferol (Vitamin D3) [Vitamin D3] 1,000 unit PO DAILY 07/28/18 [History] Atorvastatin [Lipitor] 5 mg PO HS 07/29/18 [History] Docusate [Colace] 100 mg PO HS 07/29/18 [History] Lisinopril [Zestril] 2.5 mg PO DAILY 30 Days #30 tablet 08/02/18 [Rx] Metoprolol XL (24 HR) Succ [Toprol Xl] 50 mg PO DAILY 30 Days #30 tab.er.24h 08/02/18 [Rx] Allergies/Adverse Reactions: Allergy/AdvReac Type Severity Reaction Status Date / Time Antihistamines - Alkylamine Allergy Swelling Verified 07/29/18 16:50 of Lip/Tongue/Throat Iodinated Contrast- Oral and Allergy Swelling Verified 07/29/18 16:50 IV Dye of Lip/Tongue/Throat Latex, Natural Rubber Allergy Swelling Verified 07/29/18 16:50 of Lip/Tongue/Throat Certification: Further, I certify that my clinical findings support that this patient is homebound (i.e. absences from home require considerable and taxing effort and are for medical reasons or buddhism services or infrequently or short duration when for other reasons) because: Homebound Reason: Patient requires assistance of a person or device to safely leave home Attestation: My signature below is to certify that this patient is under my care and that I, or nurse practitioner, or a physician's daycare assistant working with me, has a [id number] encounter with this patient.
== END 2018-08-03 19:25 | DRG 309 ==
LOC: 2NENU → SUATTDRO 23:56
PROVIDERS: ADMIT Internal Medicine; ATTEND Internal Medicine

== ENCOUNTER 2018-11-13 09:04 | Inpatient (IN) ==
[2018-11-13] MEDS ORDERED: 0.9 % Sodium Chloride 500 ML IVC ONE (09:18)
[2018-11-13 09:45] LABS: Bilirubin,Urine Negative (Negative); Blood,Urine Trace (Negative); Clarity,Urine Clear (Clear); Color,Urine Yellow (Yellow); Glucose,Urine (UA) Normal (Normal); Ketones,Urine Negative (Negative); Leukocyte Esterase,Urine Trace (Negative); Nitrite,Urine Negative (Negative); PH,Urine 7.5 pH Units (5.0-8.0); Protein,Urine Negative (Neg-Trace); Specific Gravity,Urine 1.009 (1.010-1.025); Urobilinogen,Urine Normal (Normal)
[2018-11-13 09:47] LABS: Bacteria,Urine None Seen per hpf (None-Few); Hyaline Casts,Urine None Seen per lpf (None-Few); Squamous Epithelial Cell,Urine Moderate per lpf (None-Few); WBC,Urine 0-3 per hpf (0-3)
[2018-11-13 10:02] LABS: Basophils # 0.1 K/mcL (0.0-0.2); Basophils % 0.6 %; Eosinophils # 0.1 K/mcL (0.0-0.6); Eosinophils % 1.3 %; Hematocrit 37.9 % (35.3-44.9); Hemoglobin 13.7 g/dL (11.5-15.4); Immature Granulocytes % 0.3 % (0-4); Lymphocytes # 1.1 K/mcL (0.6-4.6); Lymphocytes % 12.9 %; Mean Corpuscular HGB Conc 36.1 g/dL (31.6-35.5); Mean Corpuscular Hemoglobin 30.7 pg (28.0-33.3); Mean Platelet Volume 9.2 fL (9.4-12.4); Monocytes # 0.9 K/mcL (0.0-1.3); Monocytes % 10.5 %; Neutrophils # 6.6 K/mcL (1.6-8.9); Platelet Count 278 K/mcL (140-400); Red Blood Count 4.46 M/mcL (3.82-4.97); Red Cell Distribution Width 12.1 % (11.5-14.5); Segmented Neutrophils % 74.4 %; White Blood Count 8.8 K/mcL (4.3-11.1)
[2018-11-13 10:21] LABS: Alanine Aminotransferase 9 Units/L (7-52); Albumin 3.7 g/dL (3.5-5.7); Albumin/Globulin Ratio 1.7 (1.1-2.2); Alkaline Phosphatase 65 Units/L (34-104); Aspartate Amino Transferase 13 Units/L (13-39); BUN/Creatinine Ratio 33 (6-26); Bilirubin,Direct 0.2 mg/dL (0.0-0.2); Bilirubin,Indirect 0.5 mg/dL (0.0-1.2); Bilirubin,Total 0.7 mg/dL (0.3-1.0); Blood Urea Nitrogen 11 mg/dL (8-23); Calcium 8.8 mg/dL (8.6-10.3); Carbon Dioxide 27 mEq/L (23-29); Chloride 90 mEq/L (98-107); Globulin 2.2 g/dL (2.4-3.5); Glucose 115 mg/dL (70-105); Osmolality,Calculated 262 (280-300); Potassium 3.7 mEq/L (3.5-5.1); Sodium 126 mEq/L (136-145); Total Protein 5.9 g/dL (6.4-8.9); Troponin I < 0.03 ng/mL (< 0.04); eGFR For African Americans > 60 (> 60); eGFR For Non-African Americans > 60 (> 60)
[2018-11-13] MEDS ORDERED: Naloxone 0.4 MG/ML INJ IVP PRN (11:24)
[2018-11-13] MEDS ORDERED: Ondansetron 4 MG/2 ML VIAL IVP PRN (11:24)
[2018-11-13] MEDS ORDERED: Furosemide 40 MG/4 ML VIAL IVP ONE (11:24)
[2018-11-13] MEDS ORDERED: Acetaminophen 325 MG TABLET PO PRN (11:24)
[2018-11-13 12:17] LABS: Thyroid Stimulating Hormone 3.131 mcIU/mL (0.340-5.600)
[2018-11-13] MEDS: *HR* Heparin 5,000 UNIT/ML VIAL SQ SCH (18:16)
[2018-11-14 02:40] LABS: Basophils # 0.1 K/mcL (0.0-0.2); Basophils % 0.7 %; Eosinophils # 0.1 K/mcL (0.0-0.6); Eosinophils % 1.3 %; Hematocrit 38.3 % (35.3-44.9); Hemoglobin 13.4 g/dL (11.5-15.4); Immature Granulocytes % 0.4 % (0-4); Lymphocytes % 10.3 %; Mean Corpuscular Hemoglobin 29.7 pg (28.0-33.3); Mean Corpuscular Volume 84.9 fL (83.0-100.0); Mean Platelet Volume 9.9 fL (9.4-12.4); Monocytes # 1.1 K/mcL (0.0-1.3); Monocytes % 11.5 %; Neutrophils # 7.5 K/mcL (1.6-8.9); Platelet Count 302 K/mcL (140-400); Red Blood Count 4.51 M/mcL (3.82-4.97); Red Cell Distribution Width 12.1 % (11.5-14.5); Segmented Neutrophils % 75.8 %; White Blood Count 9.9 K/mcL (4.3-11.1)
[2018-11-14 03:02] LABS: BUN/Creatinine Ratio 22 (6-26); Blood Urea Nitrogen 8 mg/dL (8-23); Calcium 8.8 mg/dL (8.6-10.3); Carbon Dioxide 25 mEq/L (23-29); Chloride 92 mEq/L (98-107); Glucose 120 mg/dL (70-105); Magnesium 1.5 mg/dL (1.6-2.6); Osmolality,Calculated 262 (280-300); Potassium 3.7 mEq/L (3.5-5.1); Sodium 126 mEq/L (136-145); eGFR For African Americans > 60 (> 60); eGFR For Non-African Americans > 60 (> 60)
[2018-11-14] MEDS: *HR* Heparin 5,000 UNIT/ML VIAL SQ SCH ×2 (05:26→17:53)
[2018-11-14] MEDS: Spironolactone 25 MG TABLET PO SCH ×2 (08:33→09:09)
[2018-11-14] MEDS: Aspirin Enteric Coated 81 MG Tablet PO SCH ×2 (08:33→09:09)
[2018-11-14] MEDS: Magnesium Oxide 400 MG TABLET PO SCH ×3 (08:33→21:38)
[2018-11-14] MEDS: Furosemide 40 MG/4 ML VIAL IVP SCH ×2 (08:51→09:11)
[2018-11-14 22:42] LABS: Sodium, Urine 102.3 mEq/L
[2018-11-15 01:39] LABS: Basophils # 0.1 K/mcL (0.0-0.2); Basophils % 0.5 %; Eosinophils # 0.1 K/mcL (0.0-0.6); Eosinophils % 1.4 %; Hematocrit 37.6 % (35.3-44.9); Hemoglobin 13.7 g/dL (11.5-15.4); Immature Granulocytes % 0.2 % (0-4); Lymphocytes # 1.2 K/mcL (0.6-4.6); Lymphocytes % 12.3 %; Mean Corpuscular HGB Conc 36.4 g/dL (31.6-35.5); Mean Corpuscular Hemoglobin 31.3 pg (28.0-33.3); Mean Corpuscular Volume 85.8 fL (83.0-100.0); Monocytes % 10.5 %; Neutrophils # 7.2 K/mcL (1.6-8.9); Platelet Count 278 K/mcL (140-400); Red Blood Count 4.38 M/mcL (3.82-4.97); Red Cell Distribution Width 11.9 % (11.5-14.5); Segmented Neutrophils % 75.1 %; White Blood Count 9.6 K/mcL (4.3-11.1)
[2018-11-15 01:56] LABS: BUN/Creatinine Ratio 39 (6-26); Blood Urea Nitrogen 16 mg/dL (8-23); Calcium 9.2 mg/dL (8.6-10.3); Carbon Dioxide 26 mEq/L (23-29); Chloride 89 mEq/L (98-107); Glucose 108 mg/dL (70-105); Magnesium 1.6 mg/dL (1.6-2.6); Osmolality,Calculated 262 (280-300); Potassium 3.8 mEq/L (3.5-5.1); Sodium 125 mEq/L (136-145); eGFR For African Americans > 60 (> 60); eGFR For Non-African Americans > 60 (> 60)
[2018-11-15] MEDS: *HR* Heparin 5,000 UNIT/ML VIAL SQ SCH ×2 (06:42→17:18)
[2018-11-15] MEDS: Cholecalciferol (D-3) 1,000 UNIT (25MCG) TABLET PO SCH (07:58)
[2018-11-15] MEDS: Spironolactone 25 MG TABLET PO SCH (07:59)
[2018-11-15] MEDS: Aspirin Enteric Coated 81 MG Tablet PO SCH (07:59)
[2018-11-16 04:56] LABS: Basophils # 0.1 K/mcL (0.0-0.2); Basophils % 0.6 %; Eosinophils # 0.1 K/mcL (0.0-0.6); Eosinophils % 1.7 %; Hematocrit 36.6 % (35.3-44.9); Hemoglobin 13.1 g/dL (11.5-15.4); Immature Granulocytes % 0.2 % (0-4); Lymphocytes # 1.2 K/mcL (0.6-4.6); Lymphocytes % 14.8 %; Mean Corpuscular HGB Conc 35.8 g/dL (31.6-35.5); Mean Corpuscular Volume 86.5 fL (83.0-100.0); Monocytes % 12.7 %; Neutrophils # 5.7 K/mcL (1.6-8.9); Platelet Count 268 K/mcL (140-400); Red Blood Count 4.23 M/mcL (3.82-4.97); Red Cell Distribution Width 11.9 % (11.5-14.5); White Blood Count 8.2 K/mcL (4.3-11.1)
[2018-11-16 05:16] LABS: BUN/Creatinine Ratio 80 (6-26); Blood Urea Nitrogen 32 mg/dL (8-23); Calcium 9.3 mg/dL (8.6-10.3); Carbon Dioxide 31 mEq/L (23-29); Chloride 89 mEq/L (98-107); Glucose 106 mg/dL (70-105); Magnesium 1.9 mg/dL (1.6-2.6); Osmolality,Calculated 269 (280-300); Sodium 126 mEq/L (136-145); eGFR For African Americans > 60 (> 60); eGFR For Non-African Americans > 60 (> 60)
[2018-11-16] MEDS: *HR* Heparin 5,000 UNIT/ML VIAL SQ SCH ×2 (07:44→17:25)
[2018-11-16] MEDS: Cholecalciferol (D-3) 1,000 UNIT (25MCG) TABLET PO SCH (10:01)
[2018-11-16] MEDS: Aspirin Enteric Coated 81 MG Tablet PO SCH (10:02)
[2018-11-17 03:53] LABS: Hematocrit 36.8 % (35.3-44.9); Hemoglobin 13.1 g/dL (11.5-15.4)
[2018-11-17 04:11] LABS: BUN/Creatinine Ratio 72 (6-26); Blood Urea Nitrogen 28 mg/dL (8-23); Calcium 9.2 mg/dL (8.6-10.3); Carbon Dioxide 26 mEq/L (23-29); Chloride 93 mEq/L (98-107); Glucose 102 mg/dL (70-105); Osmolality,Calculated 272 (280-300); Potassium 4.3 mEq/L (3.5-5.1); Sodium 128 mEq/L (136-145); eGFR For African Americans > 60 (> 60); eGFR For Non-African Americans > 60 (> 60)
[2018-11-17] MEDS: *HR* Heparin 5,000 UNIT/ML VIAL SQ SCH ×2 (06:07→17:52)
[2018-11-17] MEDS: Aspirin Enteric Coated 81 MG Tablet PO SCH (08:58)
[2018-11-17] MEDS: Cholecalciferol (D-3) 1,000 UNIT (25MCG) TABLET PO SCH (08:58)
[2018-11-18 05:52] LABS: Hematocrit 37.2 % (35.3-44.9); Hemoglobin 13.1 g/dL (11.5-15.4)
[2018-11-18] MEDS: *HR* Heparin 5,000 UNIT/ML VIAL SQ SCH (06:05)
[2018-11-18 06:12] LABS: BUN/Creatinine Ratio 70 (6-26); Blood Urea Nitrogen 26 mg/dL (8-23); Calcium 9.2 mg/dL (8.6-10.3); Carbon Dioxide 28 mEq/L (23-29); Chloride 91 mEq/L (98-107); Glucose 134 mg/dL (70-105); Osmolality,Calculated 271 (280-300); Sodium 127 mEq/L (136-145); eGFR For African Americans > 60 (> 60); eGFR For Non-African Americans > 60 (> 60)
[2018-11-18] MEDS: Aspirin Enteric Coated 81 MG Tablet PO SCH (11:27)
[2018-11-18] MEDS: Cholecalciferol (D-3) 1,000 UNIT (25MCG) TABLET PO SCH (11:27)
[2018-11-18] MEDS ORDERED: *HR* LORazepam 1 MG TABLET PO ONE (16:04)
[2018-11-18 16:11] VITALS: BP 122/73
== END 2018-11-18 18:44 | DRG 884 ==
LOC: 3BNU 09:04 → EMEROOARM 09:04 → SUATTDRO 11:28 → 3BNU 12:14 → SUATTDRO 11-14 16:32
PROVIDERS: ADMIT Internal Medicine Nephrology; ATTEND Internal Medicine

== ENCOUNTER 2019-01-11 09:31 | Inpatient (IN) ==
[2019-01-11] MEDS ORDERED: 0.9 % Sodium Chloride 1,000 ML IVC ONE (09:36)
[2019-01-11] MEDS ORDERED: levoFLOXacin 750 MG/150 ML 750 MG/150 ML BAG IVPB ONE (09:36)
[2019-01-11 10:39] LABS: Basophils % 0.2 %; Eosinophils % 0.2 %; Hematocrit 37.2 % (35.3-44.9); Hemoglobin 12.8 g/dL (11.5-15.4); Immature Granulocytes % 0.6 % (0-4); Lymphocytes # 0.5 K/mcL (0.6-4.6); Mean Corpuscular HGB Conc 34.4 g/dL (31.6-35.5); Mean Corpuscular Hemoglobin 31.4 pg (28.0-33.3); Mean Corpuscular Volume 91.2 fL (83.0-100.0); Mean Platelet Volume 9.4 fL (9.4-12.4); Monocytes # 1.1 K/mcL (0.0-1.3); Monocytes % 8.4 %; Platelet Count 328 K/mcL (140-400); Red Blood Count 4.08 M/mcL (3.82-4.97); Red Cell Distribution Width 12.9 % (11.5-14.5); Segmented Neutrophils % 86.6 %; White Blood Count 12.7 K/mcL (4.3-11.1)
[2019-01-11 10:54] LABS: Alanine Aminotransferase 9 Units/L (7-52); Albumin 3.2 g/dL (3.5-5.7); Albumin/Globulin Ratio 1.5 (1.1-2.2); Alkaline Phosphatase 71 Units/L (34-104); Aspartate Amino Transferase 12 Units/L (13-39); BUN/Creatinine Ratio 57 (6-26); Blood Urea Nitrogen 39 mg/dL (8-23); Calcium 9.2 mg/dL (8.6-10.3); Carbon Dioxide 33 mEq/L (23-29); Chloride 101 mEq/L (98-107); Globulin 2.2 g/dL (2.4-3.5); Glucose 124 mg/dL (70-105); Osmolality,Calculated 313 (280-300); Potassium 3.4 mEq/L (3.5-5.1); Sodium 146 mEq/L (136-145); Total Protein 5.4 g/dL (6.4-8.9); Troponin I 0.15 ng/mL (< 0.04); eGFR For African Americans > 60 (> 60); eGFR For Non-African Americans > 60 (> 60)
[2019-01-11] MEDS ORDERED: Acetaminophen 325 MG TABLET PO PRN (11:35)
[2019-01-11] MEDS ORDERED: *HR* HYDROcodone/Acet 5/325 mg TABLET PO PRN (11:35)
[2019-01-11] MEDS ORDERED: Ondansetron 4 MG/2 ML VIAL IVP PRN (11:35)
[2019-01-11] MEDS ORDERED: Naloxone 0.4 MG/ML INJ IVP PRN (11:35)
[2019-01-11] MEDS ORDERED: Ipratropium/Albuterol Neb 3 ML IH PRN (11:44)
[2019-01-11] MEDS ORDERED: Potassium Chloride 20 MEQ in D5% in Water 1,000 ML IVC SCH (15:00)
[2019-01-11] MEDS: Morphine Sulfate Oral CONC 10 MG/0.5 ML ORAL.SYG SL PRN (16:32)
[2019-01-11] MEDS: Potassium Chloride 20 MEQ in D5% in Water 1,000 ML IVC SCH (16:50)
[2019-01-11 17:52] LABS: Adenovirus Not Detected (Not Detect); Bordetella Pertussis Not Detected (Not Detect); Chlamydophila pneumoniae Not Detected (Not Detect); Coronavirus 229E Not Detected (Not Detect); Coronavirus HKU1 Not Detected (Not Detect); Coronavirus NL63 Not Detected (Not Detect); Coronavirus OC43 Not Detected (Not Detect); Human Metapneumovirus Not Detected (Not Detect); Human Rhinovirus/Enterovirus Not Detected (Not Detect); Influenza A Subtype 2009 H1 Not Detected (Not Detect); Influenza A Untypeable Not Detected (Not Detect); Influenza B Not Detected (Not Detect); Mycoplasma pneumoniae Not Detected (Not Detect); Parainfluenza Virus 1 Not Detected (Not Detect); Parainfluenza Virus 2 Not Detected (Not Detect); Parainfluenza Virus 3 Not Detected (Not Detect); Parainfluenza Virus 4 Not Detected (Not Detect); Respiratory Syncytial Virus Not Detected (Not Detect)
[2019-01-11] MEDS ORDERED: risperiDONE 1 MG TABLET PO SCH (21:00)
[2019-01-12] MEDS: Piperacillin/Tazobactam 3.375 GM in 0.9 % Sodium Chloride Mini Bag 100 ML IVPB SCH ×2 (00:08→07:46)
[2019-01-12 04:33] LABS: Hematocrit 33.2 % (35.3-44.9); Mean Corpuscular HGB Conc 32.8 g/dL (31.6-35.5); Mean Corpuscular Hemoglobin 31.4 pg (28.0-33.3); Mean Corpuscular Volume 95.7 fL (83.0-100.0); Mean Platelet Volume 9.6 fL (9.4-12.4); Platelet Count 256 K/mcL (140-400); Red Blood Count 3.47 M/mcL (3.82-4.97); White Blood Count 10.8 K/mcL (4.3-11.1)
[2019-01-12 04:34] LABS: Hemoglobin 10.9 g/dL (11.5-15.4)
[2019-01-12 04:52] LABS: BUN/Creatinine Ratio 55 (6-26); Blood Urea Nitrogen 33 mg/dL (8-23); Calcium 8.3 mg/dL (8.6-10.3); Carbon Dioxide 33 mEq/L (23-29); Chloride 104 mEq/L (98-107); Glucose 154 mg/dL (70-105); Magnesium 1.6 mg/dL (1.6-2.6); Osmolality,Calculated 306 (280-300); Phosphorous 3.2 mg/dL (2.7-4.5); Potassium 3.6 mEq/L (3.5-5.1); Sodium 143 mEq/L (136-145); eGFR For African Americans > 60 (> 60); eGFR For Non-African Americans > 60 (> 60)
[2019-01-12] MEDS ORDERED: 0.9 % Sodium Chloride 250 ML IVC ONE ×2 (05:17→06:43)
[2019-01-12] MEDS ORDERED: 0.9 % Sodium Chloride 250 ML ONE (06:46)
[2019-01-12] MEDS: Potassium Chloride 20 MEQ in D5% in Water 1,000 ML IVC SCH (06:47)
[2019-01-12 07:45] VITALS: BP 85/38
[2019-01-12] MEDS ORDERED: levoFLOXacin 750 MG/150 ML 750 MG/150 ML BAG IVPB SCH (09:00)
[2019-01-12] MEDS ORDERED: Metoprolol XL (24 HR) Succ 50 MG TAB.ER.24H PO SCH (09:00)
[2019-01-12] MEDS ORDERED: Cholecalciferol (D-3) 1,000 UNIT (25MCG) TABLET PO SCH (09:00)
[2019-01-12] MEDS ORDERED: risperiDONE 0.25 MG TABLET PO SCH (09:00)
[2019-01-12] MEDS ORDERED: Aspirin Enteric Coated 81 MG Tablet PO SCH (09:00)
[2019-01-12] MEDS ORDERED: Scopolamine Patch 1.5 MG PATCH.TD72 TD SCH (10:30)
[2019-01-12] MEDS: Morphine Sulfate Oral CONC 10 MG/0.5 ML ORAL.SYG SL PRN (13:02)
[2019-01-13] MEDS ORDERED: levoFLOXacin 750 MG/150 ML 750 MG/150 ML BAG IVPB SCH (09:00)
== END 2019-01-12 15:58 | disposition expired | DRG 871 ==
LOC: EMEROOARM 09:31 → 2NENU 09:31 → SUATTDRO 14:44
PROVIDERS: ADMIT Internal Medicine; ATTEND Internal Medicine